=== PATIENT | female | born 1970 | race Hispanic/Latino ===

== ENCOUNTER 2021-04-19 06:00 | Day surgery (SDC) | payer OTHER ==
[~2021-04-19] VITALS: Ht 157.5 cm; Wt 61.2 kg
[2021-04-19] MEDS ORDERED: 0.9%NACL 1000ML 1,000 ML IV ONE (06:21)
[2021-04-19 06:36] VITALS: BP 149/83
[2021-04-19] MEDS ORDERED: MULT-1367 PO (06:50)
[2021-04-19] MEDS ORDERED: CYCL30DR OU (06:51)
[2021-04-19] MEDS ORDERED: LIDOCAINE HCL 400MG/20ML VIAL ONE (07:38)
[2021-04-19] MEDS ORDERED: PROPOFOL 10 MG/ML 20ML VIAL IV ONE (07:38)
[2021-04-19 08:15] VITALS: BP 111/68
[2021-04-19 08:20] VITALS: BP 105/75
[2021-04-19 08:25] VITALS: BP 108/69
[2021-04-19 08:30] VITALS: BP 114/72
== END 2021-04-19 08:45 | disposition home or self-care (01) ==
LOC: ENDO 06:00 → DAH 06:00 → ENDO 08:45
PROVIDERS: ATTEND Internal Medicine
DX: Z12.11 Encounter for screening for malignant neoplasm of colon (principal); Z20.822 Contact with and (suspected) exposure to COVID-19; K64.0 First degree hemorrhoids; K21.9 Gastro-esophageal reflux disease without esophagitis; K44.9 Diaphragmatic hernia without obstruction or gangrene; K22.8 Other specified diseases of esophagus; K31.89 Other diseases of stomach and duodenum; I12.9 Hypertensive chronic kidney disease with stage 1 through stage 4 chronic kidney disease, or unspecified chronic kidney disease; N18.30 Chronic kidney disease, stage 3 unspecified; Z98.890 Other specified postprocedural states
CPT/HCPCS: 43239; 45378; 87635; A4215 ×2; A4221; A4222; A4223; A4606; A4620; A4657; A4663; C9803; J2704; J3490; J7030